=== PATIENT | female | born 2000 | race Caucasian/White ===

== ENCOUNTER 2022-05-12 12:32 | Inpatient (IN) | payer OTHER, SELFPAY ==
[2022-05-12 12:50] VITALS: BP 108/76; PULSE 106; RESP 18; TEMP 37.3; O2SAT 100; BMI 20.1
--- NOTE | 2022-05-12 13:43 | ED.PSYCH ---
HPI - Psych General Chief Complaint: Psychiatric Symptoms Stated Complaint: SECTION 12, SI Time Seen by Provider: 05/12/22 14:46 Source: patient Mode of arrival: ambulatory Limitations: no limitations History of Present Illness HPI Narrative: 21 yold female presents to the ED for anxixety and suicidal thoughts. Patient states she needs help and is more anxious. patietn denies any acutal sI plan. patient was sent by Her PCP to the Crisis [facility] and [facility] at the center evaluated patient and patient is a voluntary admission inpatient Related Data Home Medications Medication Instructions Recorded Confirmed norethindrone (contraceptive) 0.35 1 tab PO DAILY 05/12/22 05/12/22 mg tablet Allergies Allergy/AdvReac Type Severity Reaction Status Date / Time No Known Allergies Allergy Verified 05/12/22 13:38 Review of Systems Review of Systems: anxiety, SI with no plan Yes all other systems are reviewed and are negative PMFSH Social History Social History Household Members: Other Household Members Other:: Grandparents Housing: House Do you presently have visiting nurse or other home services: No Patient Tobacco Use Status: Never used Tobacco Tobacco use type: Cigarette Cigarette Packs Per Day: 0.5 Cigarettes Per Day: 10.0 Smoked in Last 30 Days: Yes e-Cigarette/Vaping Use: Never Used Patient Interested in Nicotine Replacement: Yes Patient Given Instructions on How to Stop Smoking: Yes Date Education Initiated: 05/13/22 Second Hand Smoke Exposure: No Substance Use Type: Marijuana Substance Use Frequency: Chronic Longstanding Last Used Substance: Weeks (ago) Currently Displaying Signs/Symptoms of Drug Intoxication Withdrawal: No Any prior treatment program specific to substance use: No Have you been hit, kicked, punched, or otherwise hurt by someone within the past year? If so, by whom?: No Do you feel safe in your current relationship?: No Current Relationship Is there a partner from a previous relationship who is making you feel unsafe now?: No Are you made to feel afraid or neglected: No Spiritual Healthcare Practices: None Adventist Healthcare Practices: None Cultural Healthcare Practices: none Advance Directives: No Advance Directives Information Provided: No Do you have thoughts of harming others: None Do you have a plan to hurt others: No Plan Recently lost weight without trying: Yes How much weight loss: 2-13 pounds Eating poorly because of decreased appetite: Yes Nutrition screen score: 4 Patient : No : No Poor oral hygiene: No Physical Exam Vital Signs: Vital Signs: Last Vital Signs Temp 97.9 F 05/13/22 03:40 Pulse 95 05/13/22 03:40 Resp 18 05/13/22 03:40 BP 103/66 05/13/22 03:40 Pulse Ox 97 05/13/22 03:40 O2 Del Method 05/13/22 03:40 BMI result Body Mass Index 20.1 Const: General: cooperative, healthy appearing, comfortable, no acute distress, well developed, alert, awake and Physically active Orientation/consciousness: oriented to person, oriented to place, oriented to time and patient oriented x3 HEENT: Head: Yes normal to inspection, Yes No palpable skull fracture present, Yes normocephalic, Yes atraumatic and No abrasion Eyes: General: appearance normal, both eyes and all related structures Neck: Neck: Yes normal visual inspection, Yes full ROM, Yes no lymphadenopathy, Yes no meningeal signs, Yes trachea midline, Yes supple, No anterior neck swelling and No tender Chest: Chest palpation & inspection: normal inspection of the chest and normal palpation of entire chest wall Resp: Effort & Inspection: normal respiratory effort and able to speak in complete sentences Auscultation: clear to auscultation bilaterally Cardio: Jugular venous distension: no JVD Heart sounds: S1 normal heart sound present and S2 normal heart sound present GI: Inspection: Yes normal to inspection and No abdominal wall ecchymosis Palpation (GI): Soft to palpation, not firm, nontender and no guarding : General: No CVA tenderness and Yes no CVA tenderness Back/Spine/Pelvis: Back: no CVA tenderness, No CVA tenderness and No back tenderness Skin: General skin exam: no rashes or lesions noted and elasticity normal Neuro: General: oriented to person, oriented to place, oriented to time, patient oriented x3, gait normal, tone normal, moves all extremities, Normal light touch and pain sensation, no meningeal signs and CN's II-XI intact bilaterally Extrem: General: Yes normal to inspection and Yes full ROM Psych: Other: anxious Appearance: grossly normal, well kempt and not disheveled Course Course Course Narrative: labs ordered Reevaluation(s) Reevaluation #1: Patient going to [facility] - Psych Lab Data Result diagrams: 05/12/22 14:03 05/12/22 14:03 Labs: Lab Results 05/12/22 05/12/22 05/12/22 Range/Units 14:03 14:03 14:22 WBC 6.9 (4.8-10.8) X10*3/uL RBC 4.86 (4.20-5.50) X10*6/uL Hgb 14.1 (12.0-16.0) g/dl Hct 41.4 (37.0-47.0) % MCV 85.2 (80.0-98.0) fL MCH 29.0 (27.0-33.0) pg MCHC 34.1 (31.0-35.0) g/dl RDW 11.9 (11.0-16.0) % Plt Count 183 (160-400) X10*3/uL MPV 9.7 (9.4-12.3) fL Immature Gran % (Auto) 0.4 (0.0-0.4) % Neut % (Auto) 57.8 (45-73) % Lymph % (Auto) 33.1 (20-40) % Hawkins % (Auto) 6.7 (2-11) % Eos % (Auto) 1.3 (0-4) % Baso % (Auto) 0.7 (0-2) % Lymph # (Auto) 2.3 (1.2-4.9) X10*3/uL Hawkins # (Auto) 0.5 (0.1-1.2) X10*3/uL Eos # (Auto) 0.1 (0.0-0.4) X10*3/uL Baso # (Auto) 0.1 (0.0-0.2) X10*3/uL Abs Immat Gran (auto) 0.03 (0.00-0.03) X10*3/uL Absolute Neuts (auto) 4.0 (2.0-8.3) x10*3/uL Absolute Nucleated RBC 0.000 (0.0-0.012) X10*3/uL Nucleated RBC % (auto) 0.0 (0.0-0.2) /100WBC Sodium 141 (135-145) mmol/L Potassium 4.1 (3.3-5.1) mmol/L Chloride 106 (96-108) mmol/L Carbon Dioxide 23 (22-29) mmol/L Anion Gap 16 (12-20) BUN 9 (9-16) mg/dL Creatinine 0.91 (0.5-1.4) mg/dL Estim Creat Clear Calc 75.7 Estimated GFR > 60 Random Glucose 97 (60-115) mg/dL Calcium 10.0 (8.4-10.2) mg/dL Total Bilirubin 0.6 (0.0-1.0) mg/dL AST 18 (5-31) U/L ALT 12 (0-31) U/L Alkaline Phosphatase 47 (39-117) U/L Total Protein 7.6 (6.5-8.0) g/dL Albumin 5.1 H (3.5-5.0) g/dL Urine Color Yellow Urine Appearance Clear Urine pH 7.0 (5.0-9.0) Ur Specific [place] <= 1.005 (1.005-1.025) Urine Protein Negative (Neg-Trace) mg/dL Urine Glucose (UA) Negative (Negative) mg/dL Urine Ketones Negative (Negative) mg/dL Urine Blood Negative (Negative) Urine Nitrite Negative (Negative) Ur Leukocyte Esterase Negative (Negative) Urine Test (NEGATIVE) Urine Opiates Screen (Not Detect) Urine Fentanyl Screen (Not Detect) Ur Barbiturates Screen (Not Detect) Ur Phencyclidine Scrn (Not Detect) Ur Amphetamines Screen (Not Detect) U Benzodiazepines Scrn (Not Detect) Urine Cocaine Screen (Not Detect) U Marijuana (THC) Screen (Not Detect) Ethyl Alcohol < 10 mg/dL COVID-19 (ANITA) (Negative) COVID-19 Clin Com 05/12/22 05/12/22 05/12/22 Range/Units 14:22 14:22 17:05 WBC (4.8-10.8) X10*3/uL RBC (4.20-5.50) X10*6/uL Hgb (12.0-16.0) g/dl Hct (37.0-47.0) % MCV (80.0-98.0) fL MCH (27.0-33.0) pg MCHC (31.0-35.0) g/dl RDW (11.0-16.0) % Plt Count (160-400) X10*3/uL MPV (9.4-12.3) fL Immature Gran % (Auto) (0.0-0.4) % Neut % (Auto) (45-73) % Lymph % (Auto) (20-40) % Hawkins % (Auto) (2-11) % Eos % (Auto) (0-4) % Baso % (Auto) (0-2) % Lymph # (Auto) (1.2-4.9) X10*3/uL Hawkins # (Auto) (0.1-1.2) X10*3/uL Eos # (Auto) (0.0-0.4) X10*3/uL Baso # (Auto) (0.0-0.2) X10*3/uL Abs Immat Gran (auto) (0.00-0.03) X10*3/uL Absolute Neuts (auto) (2.0-8.3) x10*3/uL Absolute Nucleated RBC (0.0-0.012) X10*3/uL Nucleated RBC % (auto) (0.0-0.2) /100WBC Sodium (135-145) mmol/L Potassium (3.3-5.1) mmol/L Chloride (96-108) mmol/L Carbon Dioxide (22-29) mmol/L Anion Gap (12-20) BUN (9-16) mg/dL Creatinine (0.5-1.4) mg/dL Estim Creat Clear Calc Estimated GFR Random Glucose (60-115) mg/dL Calcium (8.4-10.2) mg/dL Total Bilirubin (0.0-1.0) mg/dL AST (5-31) U/L ALT (0-31) U/L Alkaline Phosphatase (39-117) U/L Total Protein (6.5-8.0) g/dL Albumin (3.5-5.0) g/dL Urine Color Urine Appearance Urine pH (5.0-9.0) Ur Specific [place] (1.005-1.025) Urine Protein (Neg-Trace) mg/dL Urine Glucose (UA) (Negative) mg/dL Urine Ketones (Negative) mg/dL Urine Blood (Negative) Urine Nitrite (Negative) Ur Leukocyte Esterase (Negative) Urine Test NEGATIVE (NEGATIVE) Urine Opiates Screen Not Detected (Not Detect) Urine Fentanyl Screen Not Detected (Not Detect) Ur Barbiturates Screen Not Detected (Not Detect) Ur Phencyclidine Scrn Not Detected (Not Detect) Ur Amphetamines Screen Not Detected (Not Detect) U Benzodiazepines Scrn Not Detected (Not Detect) Urine Cocaine Screen Not Detected (Not Detect) U Marijuana (THC) Screen Not Detected (Not Detect) Ethyl Alcohol mg/dL COVID-19 (ANITA) Negative (Negative) COVID-19 Clin Com See Note Discharge Plan Discharge Clinical Impression: MDD (major depressive disorder) Patient Disposition: Admitted As Inpatient Interventions: Admission Worksheet (ED) Last Done: 05/13/22 03:36 Discharge Date/Time: 05/13/22 03:37
[2022-05-12 14:18] LABS: Basophils Absolute Auto 0.1 X10*3/uL (0.0-0.2); Basophils Percent Auto 0.7 % (0-2); Eosinophils Absolute Auto 0.1 X10*3/uL (0.0-0.4); Eosinophils Percent Auto 1.3 % (0-4); Hematocrit 41.4 % (37.0-47.0); Hemoglobin 14.1 g/dl (12.0-16.0); Imm Gran Abs Auto 0.03 X10*3/uL (0.00-0.03); Imm Gran Pct Auto 0.4 % (0.0-0.4); Lymphocytes Absolute Auto 2.3 X10*3/uL (1.2-4.9); Lymphocytes Percent Auto 33.1 % (20-40); MANUAL DIFF FLAG NO; Mean Corpuscular HGB Conc 34.1 g/dl (31.0-35.0); Mean Corpuscular Volume 85.2 fL (80.0-98.0); Mean Platelet Volume 9.7 fL (9.4-12.3); Monocytes Absolute Auto 0.5 X10*3/uL (0.1-1.2); Monocytes Percent Auto 6.7 % (2-11); Neutrophils Percent Auto 57.8 % (45-73); Platelet Count 183 X10*3/uL (160-400); Red Blood Count 4.86 X10*6/uL (4.20-5.50); Red Cell Distribution Width 11.9 % (11.0-16.0); White Blood Count 6.9 X10*3/uL (4.8-10.8)
[2022-05-12 14:29] LABS: UPreg QC Valid YES; Urine Pregnancy NEGATIVE (NEGATIVE)
[2022-05-12 14:33] LABS: Alanine Aminotransferase 12 U/L (0-31); Albumin Level 5.1 g/dL (3.5-5.0); Alkaline Phosphatase 47 U/L (39-117); Anion Gap 16 (12-20); Aspartate Amino Transferase 18 U/L (5-31); Bilirubin Total 0.6 mg/dL (0.0-1.0); Blood Urea Nitrogen 9 mg/dL (9-16); Carbon Dioxide 23 mmol/L (22-29); Chloride 106 mmol/L (96-108); Creatinine Clr Calc Pharmacy 75.7; Estimated Glomerular Filt Rate > 60; Ethanol < 10 mg/dL; Glucose Random 97 mg/dL (60-115); Potassium 4.1 mmol/L (3.3-5.1); Sodium 141 mmol/L (135-145); Total Protein 7.6 g/dL (6.5-8.0)
[2022-05-12 14:33] LABS: Appearance Urine Clear; Color Urine Yellow; Glucose Urine UA Negative (Negative); Leukocyte Esterase Urine Negative (Negative); Nitrite Urine Negative (Negative); Specific Gravity - Urine <= 1.005 (1.005-1.025); Urine Blood Negative (Negative); Urine Ketones Negative (Negative); Urine Protein Negative (Neg-Trace)
[2022-05-12 14:46] VITALS: BP 105/78; PULSE 102; RESP 18; O2SAT 98
[2022-05-12 15:20] LABS: Amphetamine Screen Urine Not Detected (Not Detect); Barbiturates, Urine Not Detected (Not Detect); Benzodiazepines Screen Urine Not Detected (Not Detect); Cannabinoid Screen Urine Not Detected (Not Detect); Cocaine Screen Urine Not Detected (Not Detect); Fentanyl, urine Not Detected (Not Detect); Opiate Screen Urine Not Detected (Not Detect); Phencyclidine Screen Urine Not Detected (Not Detect)
--- NOTE | 2022-05-12 17:34 | PC.NURSE ---
Pharmacy called for med rec. Awaiting pharmacy.
[2022-05-12 17:38] VITALS: BP 107/71; PULSE 92; RESP 14; TEMP 36.4; O2SAT 99
[2022-05-12 17:50] LABS: COVID-19 Test Negative (Negative); IDNOW Serial# 9DB6401D
[2022-05-12 19:11] VITALS: BP 103/76; PULSE 111; O2SAT 99
[2022-05-12] MEDS: LORazepam 1 MG TABLET 2 MG PO (20:59)
[2022-05-12] MEDS: Nicotine Polacrilex 2 MG GUM BUCCAL (20:59)
[2022-05-13 03:40] VITALS: BP 103/66; PULSE 95; RESP 18; TEMP 36.6; O2SAT 97
--- NOTE | 2022-05-13 06:21 | PC.ADMIT ---
Patient is a 21-year-old, cisgender, Gabonese speaking white female who presents to from [facility] ED for anxiety and suicidal thoughts. Patient is covid negative. Tox screen is negative. test is negative. Per [facility] crisis report; Patient was evaluated by [facility] secondary to her therapist referring her to crisis due to her not eating, not sleeping, drinking a lot of alcohol, and feeling her mind is out of control. Patient stated to [facility] she feels paranoid and sometimes thinks people are out to get her . Patient further stated she has disrupted sleep patterns due to anxiety, sleeping sometimes 2 hours, on average 5 hours. Appetite is low. She was endorsing current SI and stated it happens daily. She denied intent, and reported that she's thought of everything in terms of how she would kill herself. Patient stated I don't want to but doesn't trust herself due to feeling her mind is out of control. She stated she has flashbacks of finding her mother almost daily when she's stressed. Patient was cooperative during the admission process; denies SI/HI/AH/VH. Patient states I'm very tired, I would just like to lay down . She did complete the admission process and signed a Conditional Voluntary status.
[2022-05-13] MEDS: Nicotine Polacrilex 2 MG GUM BUCCAL (09:09)
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
[2022-05-13] MEDS: Nicotine Polacrilex 2 MG GUM 4 MG BUCCAL ×3 (13:16→20:46)
[2022-05-13] MEDS: FLUoxetine HCl 10 MG CAPSULE PO (13:17)
[2022-05-13 18:00] VITALS: BP 94/66; PULSE 91
[2022-05-13] MEDS: traZODone HCL 50 MG TABLET PO (22:33)
[2022-05-14 08:00] VITALS: BP 93/57; PULSE 80; TEMP 36.6; O2SAT 99
[2022-05-14] MEDS: FLUoxetine HCl 10 MG CAPSULE PO (08:17)
[2022-05-14] MEDS: Nicotine Polacrilex 2 MG GUM 4 MG BUCCAL ×3 (08:24→19:00)
[2022-05-14 09:09] LABS: Estimated Average Glucose 103 mg/dL; Hemoglobin A1c % 5.2 %
[2022-05-14 09:24] LABS: Cholesterol 137 mg/dL; HDL Cholesterol 42 mg/dL; LDL Cholesterol Calculated 88 mg/dl; Triglycerides 36 mg/dL
[2022-05-14 09:45] LABS: Free T4 (Free Thyroxine) 1.07 ng/dL (0.71-1.85); Thyroid Stimulating Hormone 0.56 uIU/mL (0.32-4.0)
[2022-05-14] MEDS: Nicotine 21 MG PATCH.TD24 TRANSDERMA (10:05)
--- NOTE | 2022-05-14 10:26 | P.PNPSI_ITS ---
Subjective Subjective Date of Service: 05/14/22 Reason For Visit: Anxiety, Si Interim History: Patient reports feeling a little better today. Patient had a panic attack last night but is not sure with the trigger was. She found she was able to come down by talking with her with staff. No side effects from the Prozac. She said she slept well and use trazodone but not sure was more helpful hydroxyzine. Patient feels grateful for the admission and feels that being on the unit is allowing her to process a lot of her anxious feelings. She said that because she is calm down and anxiety is a little less she is finding herself eating well and has finished all her meals. 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 Patient agrees to do some of her own work and try and identify these connections throughout the day. Also discussed medication and patient feels comfortable increasing the dose of Prozac. Denies any SI Mental Status Exam Mental Status Exam Narrative: Pt is alert and oriented; behavior is cooperative, more calm, friendly; dressed in casual attire and well-groomed; mood is described as a little better and affect congruent, a little more calm; eye contact appropriate; Speech is normal rate, volume and prosody and not pressured; no psychomotor agitation and retardation present; thought process is organized and goal directed; Thought content is on handling her worries; otherwise pertinent to relevant topics and without any delusional content, paranoid ideations or grandiosity; some Intermittent passive wish; denies any SI/HI. There is no evidence of perceptual disturbance. Patients insight and judgment are impaired but improving. Diagnostics Vital Signs (24Hr): Vital Signs - 24 hr 05/13/22 18:00 Pulse Rate 91 Blood Pressure 94/66 BMI result Body Mass Index 20.1 Labs Results: 05/12/22 14:03 05/12/22 14:03 Labs: Laboratory Results - last 48 hr 05/12/22 05/12/22 05/12/22 14:03 14:03 14:22 WBC 6.9 RBC 4.86 Hgb 14.1 Hct 41.4 MCV 85.2 MCH 29.0 MCHC 34.1 RDW 11.9 Plt Count 183 MPV 9.7 Immature Gran % (Auto) 0.4 Neut % (Auto) 57.8 Lymph % (Auto) 33.1 Davidson % (Auto) 6.7 Eos % (Auto) 1.3 Baso % (Auto) 0.7 Lymph # (Auto) 2.3 Davidson # (Auto) 0.5 Eos # (Auto) 0.1 Baso # (Auto) 0.1 Abs Immat Gran (auto) 0.03 Absolute Neuts (auto) 4.0 Absolute Nucleated RBC 0.000 Nucleated RBC % (auto) 0.0 Sodium 141 Potassium 4.1 Chloride 106 Carbon Dioxide 23 Anion Gap 16 BUN 9 Creatinine 0.91 Estim Creat Clear Calc 75.7 Estimated GFR > 60 Random Glucose 97 Estimat Average Glucose Hemoglobin A1c % Calcium 10.0 Magnesium Total Bilirubin 0.6 AST 18 ALT 12 Alkaline Phosphatase 47 Total Protein 7.6 Albumin 5.1 H Triglycerides Cholesterol LDL Cholesterol, Calc HDL Cholesterol TSH Free T4 Urine Color Yellow Urine Appearance Clear Urine pH 7.0 Ur Specific [place] <= 1.005 Urine Protein Negative Urine Glucose (UA) Negative Urine Ketones Negative Urine Blood Negative Urine Nitrite Negative Ur Leukocyte Esterase Negative Urine Test Urine Opiates Screen Urine Fentanyl Screen Ur Barbiturates Screen Ur Phencyclidine Scrn Ur Amphetamines Screen U Benzodiazepines Scrn Urine Cocaine Screen U Marijuana (THC) Screen Ethyl Alcohol < 10 COVID-19 ([facility]ITA) COVID-19 Clin Com 05/12/22 05/12/22 05/12/22 14:22 14:22 17:05 WBC RBC Hgb Hct MCV MCH MCHC RDW Plt Count MPV Immature Gran % (Auto) Neut % (Auto) Lymph % (Auto) [place] % (Auto) Eos % (Auto) Baso % (Auto) Lymph # (Auto) Davidson # (Auto) Eos # (Auto) Baso # (Auto) Abs Immat Gran (auto) Absolute Neuts (auto) Absolute Nucleated RBC Nucleated RBC % (auto) Sodium Potassium Chloride Carbon Dioxide Anion Gap BUN Creatinine Estim Creat Clear Calc Estimated GFR Random Glucose Estimat Average Glucose Hemoglobin A1c % Calcium Magnesium Total Bilirubin AST ALT Alkaline Phosphatase Total Protein Albumin Triglycerides Cholesterol LDL Cholesterol, Calc HDL Cholesterol TSH Free T4 Urine Color Urine Appearance Urine pH Ur Specific [place] Urine Protein Urine Glucose (UA) Urine Ketones Urine Blood Urine Nitrite Ur Leukocyte Esterase Urine Test NEGATIVE Urine Opiates Screen Not Detected Urine Fentanyl Screen Not Detected Ur Barbiturates Screen Not Detected Ur Phencyclidine Scrn Not Detected Ur Amphetamines Screen Not Detected U Benzodiazepines Scrn Not Detected Urine Cocaine Screen Not Detected U Marijuana (THC) Screen Not Detected Ethyl Alcohol COVID-19 (ANITA) Negative COVID-19 Clin Com See Note 05/14/22 05/14/22 08:14 08:14 WBC RBC Hgb Hct MCV MCH MCHC RDW Plt Count MPV Immature Gran % (Auto) Neut % (Auto) Lymph % (Auto) [place] % (Auto) Eos % (Auto) Baso % (Auto) Lymph # (Auto) [place] # (Auto) Eos # (Auto) Baso # (Auto) Abs Immat Gran (auto) Absolute Neuts (auto) Absolute Nucleated RBC Nucleated RBC % (auto) Sodium Potassium Chloride Carbon Dioxide Anion Gap BUN Creatinine Estim Creat Clear Calc Estimated GFR Random Glucose Estimat Average Glucose 103 Hemoglobin A1c % 5.2 Calcium Magnesium 2.0 Total Bilirubin AST ALT Alkaline Phosphatase Total Protein Albumin Triglycerides 36 Cholesterol 137 LDL Cholesterol, Calc 88 HDL Cholesterol 42 TSH 0.56 Free T4 1.07 Urine Color Urine Appearance Urine pH Ur Specific [place] Urine Protein Urine Glucose (UA) Urine Ketones Urine Blood Urine Nitrite Ur Leukocyte Esterase Urine Test Urine Opiates Screen Urine Fentanyl Screen Ur Barbiturates Screen Ur Phencyclidine Scrn Ur Amphetamines Screen U Benzodiazepines Scrn Urine Cocaine Screen U Marijuana (THC) Screen Ethyl Alcohol COVID-19 ([facility]ITA) COVID-19 Clin Com Medications Medications Current Medications Acetaminophen (Acetaminophen 325 Mg Tablet) 650 mg PO Q6H PRN PRN Reason: Headache/Pain Mild Scale (1-3) Al Hydroxide/Mg Hydroxide (Magnesium Hydrox/Alum Hydrox 30 Ml Oral.Susp) 30 ml PO Q6H PRN PRN Reason: Heartburn/Nausea Fluoxetine HCl (Fluoxetine Hcl 10 Mg Capsule) 10 mg PO DAILY [facility] Last Admin: 05/14/22 08:17 Dose: 10 mg Hydroxyzine HCl (Hydroxyzine Hcl 25 Mg Tablet) 25 mg PO Q6H PRN PRN Reason: Anxiety/insomnia Hydroxyzine HCl (Hydroxyzine Hcl 25 Mg Tablet) 25 mg PO BEDTIME PRN PRN Reason: insomnia Magnesium Hydroxide (Milk Of Magnesia 30 Ml Oral.Susp) 30 ml PO DAILY PRN PRN Reason: Constipation Nicotine (Nicotine 21 Mg Patch.Td24) 21 mg TRANSDERMA DAILY PRN PRN Reason: smoking cessation Last Admin: 05/14/22 10:05 Dose: 21 mg Nicotine Polacrilex (Nicotine Polacrilex 2 Mg Gum) 4 mg BUCCAL Q2H PRN PRN Reason: Nicotine Cravings Last Admin: 05/14/22 08:24 Dose: 4 mg Pt Own ( Norethindrone ( Contraceptive) 1 Tab ) 1 tab PO DAILY [facility] Last Admin: 05/13/22 20:43 Dose: 1 tab Trazodone HCl (Trazodone Hcl 50 Mg Tablet) 50 mg PO BEDTIME PRN PRN Reason: Insomnia Last Admin: 05/13/22 22:33 Dose: 50 mg Allergies Allergies Allergy/AdvReac Type Severity Reaction Status Date / Time No Known Allergies Allergy Verified 05/12/22 13:38 Assessment & Plan Assessment & Plan (1) RITIKA (generalized anxiety disorder): Status: Acute Code(s): F41.1 - Generalized anxiety disorder (2) MDD (major depressive disorder): Status: Acute Code(s): F32.9 - Major depressive disorder, single episode, unspecified (3) PTSD (post-traumatic stress disorder): Status: Acute Code(s): F43.10 - Post-traumatic stress disorder, unspecified Plan 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 -Anxiety symptoms fit more closely with RITIKA than OCD (which can remain a rule out); tx similar for both -depression seems more of consequence of life getting derailed by anxiety (interferes with boyfriend, work, daily tasks; pt is exhausted from it, can not stop it; excessive worries but no real specific obsessions) -symptoms either originated from or complicated by traumatic events of childhood -pt very anxious about medication side-effects but reasoned through it and willing to start Prozac again 05/14 Patient feeling a little better. Tolerating medication well. Slept well last night and says she is eating well which is new for her. She still anxious and still depressed but has more optimism that she will be able to work through this and overcome. Agrees to increase Prozac PLAN: CV q15 Increase to Prozac 20mg; continue hydroxyzine (pt takes at home for insomnia) get collateral I spent minutes with the patient and/or on the patient floor today, greater than?50% of which was spent counseling/coordinating care. Patient educated on: diagnosis, medication risk/benefits and therapeutic strategies Informed Consent: understands Reason for contiued inpatient stay Substantial Risk for: rapid decompensation
[2022-05-14 10:31] LABS: Folate 9.9 ng/mL (> or = 4.0); Vitamin B12 504 pg/mL (200-900)
[2022-05-14 18:00] VITALS: BP 105/72; PULSE 89; RESP 18; TEMP 37.4; O2SAT 97
[2022-05-15 07:00] VITALS: BMI 21.2
[2022-05-15] MEDS: FLUoxetine HCl 20 MG CAPSULE PO (08:08)
[2022-05-15 09:11] VITALS: BP 101/62; PULSE 86; RESP 16; TEMP 36.4; O2SAT 101
[2022-05-15] MEDS: Nicotine Polacrilex 2 MG GUM 4 MG BUCCAL ×3 (11:24→19:01)
--- NOTE | 2022-05-15 13:21 | HO.PSYCHPN ---
Subjective Subjective Date of Service: 05/15/22 Reason For Visit: Anxiety, Si Interim History: pt reports she is doing better; mood is better and anxiety is less; patient says she feels more able to pull herself away from constantly worrying about things. Patient says tolerating increased Prozac dose well. Patient shared more details about several of her past relationships with men and also with friends. Ap Processor and patient went through another CBT exercise and patient was able to challenge her go to automatic thought that she is on level. Patient also understands that she has been thinking this way for quite some time and will continue to struggle with this thought. However she says she really likes her outpatient therapist and will continue working on these issues. She has never been on medication before and she feels that she is in a better position to stabilize. Patient feels ready for discharge tomorrow. She denies any SI or HI or AVH. She continues to sleep in eat well. She remains with strong support in the community, including her grandparents and supple very close friends she has had since middle school. Mental Status Exam Mental Status Exam Narrative: Pt is alert and oriented; behavior is cooperative, more calm, friendly; dressed in casual attire and well-groomed; mood is described as good and affect congruent, calm, bright; eye contact appropriate; Speech is normal rate, volume and prosody and not pressured; no psychomotor agitation and retardation present; thought process is organized and goal directed; Thought content is on working on issues, controlling her worries; otherwise pertinent to relevant topics and without any delusional content, paranoid ideations or grandiosity; no passive wish, SI or HI; There is no evidence of perceptual disturbance. Patients insight and judgment are fair. . Diagnostics Vital Signs (24Hr): Vital Signs - 24 hr 05/14/22 18:00 05/15/22 09:11 Temperature 99.3 F 97.5 F Pulse Rate 89 86 Respiratory Rate 18 16 Blood Pressure 105/72 101/62 Pulse Oximetry 97 101 H Oxygen Delivery Method Room Air Room Air BMI result Body Mass Index 21.2 Labs Results: 05/12/22 14:03 05/12/22 14:03 Labs: Laboratory Results - last 48 hr 05/14/22 05/14/22 05/14/22 08:14 08:14 08:14 Estimat Average Glucose 103 Hemoglobin A1c % 5.2 Magnesium 2.0 Triglycerides 36 Cholesterol 137 LDL Cholesterol, Calc 88 HDL Cholesterol 42 Vitamin B12 504 Folate 9.9 TSH 0.56 Free T4 1.07 Medications Medications Current Medications Acetaminophen (Acetaminophen 325 Mg Tablet) 650 mg PO Q6H PRN PRN Reason: Headache/Pain Mild Scale (1-3) Al Hydroxide/Mg Hydroxide (Magnesium Hydrox/Alum Hydrox 30 Ml Oral.Susp) 30 ml PO Q6H PRN PRN Reason: Heartburn/Nausea Fluoxetine HCl (Fluoxetine Hcl 20 Mg Capsule) 20 mg PO DAILY [facility] Last Admin: 05/15/22 08:08 Dose: 20 mg Hydroxyzine HCl (Hydroxyzine Hcl 25 Mg Tablet) 25 mg PO Q6H PRN PRN Reason: Anxiety/insomnia Hydroxyzine HCl (Hydroxyzine Hcl 25 Mg Tablet) 25 mg PO BEDTIME PRN PRN Reason: insomnia Magnesium Hydroxide (Milk Of Magnesia 30 Ml Oral.Susp) 30 ml PO DAILY PRN PRN Reason: Constipation Nicotine (Nicotine 21 Mg Patch.Td24) 21 mg TRANSDERMA DAILY PRN PRN Reason: smoking cessation Last Admin: 05/14/22 10:05 Dose: 21 mg Nicotine Polacrilex (Nicotine Polacrilex 2 Mg Gum) 4 mg BUCCAL Q2H PRN PRN Reason: Nicotine Cravings Last Admin: 05/15/22 11:24 Dose: 4 mg Non-Formulary Medication (Norethindrone (Contraceptive)) 1 tab PO BEDTIME [facility] Last Admin: 05/14/22 22:05 Dose: Not Given Trazodone HCl (Trazodone Hcl 50 Mg Tablet) 50 mg PO BEDTIME PRN PRN Reason: Insomnia Last Admin: 05/13/22 22:33 Dose: 50 mg Allergies Allergies Allergy/AdvReac Type Severity Reaction Status Date / Time No Known Allergies Allergy Verified 05/12/22 13:38 Assessment & Plan Assessment & Plan (1) RITIKA (generalized anxiety disorder): Status: Acute Code(s): F41.1 - Generalized anxiety disorder (2) MDD (major depressive disorder): Status: Acute Code(s): F32.9 - Major depressive disorder, single episode, unspecified (3) PTSD (post-traumatic stress disorder): Status: Acute Code(s): F43.10 - Post-traumatic stress disorder, unspecified Plan 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 -Anxiety symptoms fit more closely with RITIKA than OCD (which can remain a rule out); tx similar for both -depression seems more of consequence of life getting derailed by anxiety (interferes with boyfriend, work, daily tasks; pt is exhausted from it, can not stop it; excessive worries but no real specific obsessions) -symptoms either originated from or complicated by traumatic events of childhood -pt very anxious about medication side-effects but reasoned through it and willing to start Prozac again 05/14 Patient feeling a little better. Tolerating medication well. Slept well last night and says she is eating well which is new for her. She still anxious and still depressed but has more optimism that she will be able to work through this and overcome. Agrees to increase Prozac 05/15 patient reports that she is doing better, anxiety under better control and depression mostly resolved. She is still anxious and struggles with worries however she feels that she has more control over how long she dwells on a particular worry and more able to pull herself back. Patient has good support in the community including her grandparents, her friends and therapist with whom she has a strong rapport. Patient feels ready for discharge and put in a 3 day notice. She is future oriented, looking to get back to work, see her dog and continue treatment as an outpatient. She denies any SI or HI or AVH. She is sleeping and eating well, attending groups and has remained in good behavioral and impulse control, appropriate with peers and staff. Patient is not in imminent risk for harm to self or others and her request for discharge honored. PLAN: 3 day q15 Increase to Prozac 20mg; continue hydroxyzine (pt takes at home for insomnia) get collateral I spent minutes with the patient and/or on the patient floor today, greater than?50% of which was spent counseling/coordinating care. Patient educated on: diagnosis, medication risk/benefits and therapeutic strategies Informed Consent: understands Reason for contiued inpatient stay Substantial Risk for: stable for discharge
--- NOTE | 2022-05-16 07:16 | PM.PSYDC ---
DS: Providers Provider Date of Service: 05/16/22 Date of admission: 05/13/22 03:12 Date of discharge: 05/16/22 Primary care physician: Gianna Krishnan CNP Attending physician on admission: Mekhi Ledesma Attending physician on discharge: Mekhi Ledesma DS: Diagnosis Discharge Diagnosis (1) RITIKA (generalized anxiety disorder): Status: Acute (2) MDD (major depressive disorder): Status: Acute (3) PTSD (post-traumatic stress disorder): Status: Acute DS: Medications Discharge Medications Home Medications: Home Medications Medication Instructions Recorded Confirmed norethindrone (contraceptive) 0.35 1 tab PO DAILY 05/12/22 05/12/22 mg tablet Previous Rx's Medication Instructions Recorded fluoxetine 20 mg capsule 20 mg PO DAILY 30 days #30 caps 05/15/22 hydroxyzine HCl 25 mg tablet 25 mg PO Q6H PRN Anxiety/insomnia 05/15/22 30 days #90 tabs nicotine (polacrilex) 2 mg gum 4 mg buccal Q2H PRN Nicotine 05/15/22 Cravings 30 days #100 ea Mental Status Exam Mental Status Exam Narrative: Pt is alert and oriented; behavior is cooperative, more calm, friendly; dressed in casual attire and well-groomed; mood is described as good and affect congruent, calm, bright; eye contact appropriate; Speech is normal rate, volume and prosody and not pressured; no psychomotor agitation and retardation present; thought process is organized and goal directed; Thought content is on working on issues, controlling her worries; otherwise pertinent to relevant topics and without any delusional content, paranoid ideations or grandiosity; no passive wish, SI or HI; There is no evidence of perceptual disturbance. Patients insight and judgment are fair. . Data Data Completed and Pending Completed studies during hospitalization [Text1]: 05/12/22 05/12/22 05/12/22 14:03 14:03 14:22 WBC 6.9 RBC 4.86 Hgb 14.1 Hct 41.4 MCV 85.2 MCH 29.0 MCHC 34.1 RDW 11.9 Plt Count 183 MPV 9.7 Immature Gran % (Auto) 0.4 Neut % (Auto) 57.8 Lymph % (Auto) 33.1 [place] % (Auto) 6.7 Eos % (Auto) 1.3 Baso % (Auto) 0.7 Lymph # (Auto) 2.3 [place] # (Auto) 0.5 Eos # (Auto) 0.1 Baso # (Auto) 0.1 Abs Immat Gran (auto) 0.03 Absolute Neuts (auto) 4.0 Absolute Nucleated RBC 0.000 Nucleated RBC % (auto) 0.0 Sodium 141 Potassium 4.1 Chloride 106 Carbon Dioxide 23 Anion Gap 16 BUN 9 Creatinine 0.91 Estim Creat Clear Calc 75.7 Estimated GFR > 60 Random Glucose 97 Estimat Average Glucose Hemoglobin A1c % Calcium 10.0 Magnesium Total Bilirubin 0.6 AST 18 ALT 12 Alkaline Phosphatase 47 Total Protein 7.6 Albumin 5.1 H Triglycerides Cholesterol LDL Cholesterol, Calc HDL Cholesterol Vitamin B12 Folate TSH Free T4 Urine Color Yellow Urine Appearance Clear Urine pH 7.0 Ur Specific [place] <= 1.005 Urine Protein Negative Urine Glucose (UA) Negative Urine Ketones Negative Urine Blood Negative Urine Nitrite Negative Ur Leukocyte Esterase Negative Urine Test Urine Opiates Screen Urine Fentanyl Screen Ur Barbiturates Screen Ur Phencyclidine Scrn Ur Amphetamines Screen U Benzodiazepines Scrn Urine Cocaine Screen U Marijuana (THC) Screen Ethyl Alcohol < 10 COVID-19 ([facility]) COVID-19 Clin Com 05/12/22 05/12/22 05/12/22 14:22 14:22 17:05 WBC RBC Hgb Hct MCV MCH MCHC RDW Plt Count MPV Immature Gran % (Auto) Neut % (Auto) Lymph % (Auto) [place] % (Auto) Eos % (Auto) Baso % (Auto) Lymph # (Auto) [place] # (Auto) Eos # (Auto) Baso # (Auto) Abs Immat Gran (auto) Absolute Neuts (auto) Absolute Nucleated RBC Nucleated RBC % (auto) Sodium Potassium Chloride Carbon Dioxide Anion Gap BUN Creatinine Estim Creat Clear Calc Estimated GFR Random Glucose Estimat Average Glucose Hemoglobin A1c % Calcium Magnesium Total Bilirubin AST ALT Alkaline Phosphatase Total Protein Albumin Triglycerides Cholesterol LDL Cholesterol, Calc HDL Cholesterol Vitamin B12 Folate TSH Free T4 Urine Color Urine Appearance Urine pH Ur Specific [place] Urine Protein Urine Glucose (UA) Urine Ketones Urine Blood Urine Nitrite Ur Leukocyte Esterase Urine Test NEGATIVE Urine Opiates Screen Not Detected Urine Fentanyl Screen Not Detected Ur Barbiturates Screen Not Detected Ur Phencyclidine Scrn Not Detected Ur Amphetamines Screen Not Detected U Benzodiazepines Scrn Not Detected Urine Cocaine Screen Not Detected U Marijuana (THC) Screen Not Detected Ethyl Alcohol COVID-19 ([facility]) Negative COVID-19 Clin Com See Note 05/14/22 05/14/22 05/14/22 08:14 08:14 08:14 WBC RBC Hgb Hct MCV MCH MCHC RDW Plt Count MPV Immature Gran % (Auto) Neut % (Auto) Lymph % (Auto) [place] % (Auto) Eos % (Auto) Baso % (Auto) Lymph # (Auto) [place] # (Auto) Eos # (Auto) Baso # (Auto) Abs Immat Gran (auto) Absolute Neuts (auto) Absolute Nucleated RBC Nucleated RBC % (auto) Sodium Potassium Chloride Carbon Dioxide Anion Gap BUN Creatinine Estim Creat Clear Calc Estimated GFR Random Glucose Estimat Average Glucose 103 Hemoglobin A1c % 5.2 Calcium Magnesium 2.0 Total Bilirubin AST ALT Alkaline Phosphatase Total Protein Albumin Triglycerides 36 Cholesterol 137 LDL Cholesterol, Calc 88 HDL Cholesterol 42 Vitamin B12 504 Folate 9.9 TSH 0.56 Free T4 1.07 Urine Color Urine Appearance Urine pH Ur Specific [place] Urine Protein Urine Glucose (UA) Urine Ketones Urine Blood Urine Nitrite Ur Leukocyte Esterase Urine Test Urine Opiates Screen Urine Fentanyl Screen Ur Barbiturates Screen Ur Phencyclidine Scrn Ur Amphetamines Screen U Benzodiazepines Scrn Urine Cocaine Screen U Marijuana (THC) Screen Ethyl Alcohol COVID-19 ([facility]) COVID-19 Clin Com DS: Summary Hospital Course Hospital Course: HPI: 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 -Anxiety symptoms fit more closely with RITIKA than OCD (which can remain a rule out); tx similar for both -depression seems more of consequence of life getting derailed by anxiety (interferes with boyfriend, work, daily tasks; pt is exhausted from it, can not stop it; excessive worries but no real specific obsessions) -symptoms either originated from or complicated by traumatic events of childhood On admission, patient was cooperative and friendly but anxious and intermittently tearful, played with worries and self-deprecating thoughts. She was very anxious about medication side-effects but reasoned through it and willing to start Prozac again. Soon patient started feeling better. She was? Tolerating medication well.? Patient reported she Slept well last night and says she is eating well which is new for her.? She still anxious and still depressed but has more optimism that she will be able to work through this and overcome.? Agrees to increase Prozac to 20 mg. Patient continued to improve. Patient reports that she is doing better, anxiety under better control and depression mostly resolved.? She is still anxious and struggles with worries however she feels that she has more control over how long she dwells on a particular worry and more able to pull herself back.? Patient has good support in the community including her grandparents, her friends and therapist with whom she has a strong rapport.? Patient feels ready for discharge and put in a 3 day notice.? She is future oriented, looking to get back to work, see her dog and continue treatment as an outpatient.? She denies any SI or HI or AVH.? She is sleeping and eating well, attending groups and has remained in good behavioral and impulse control, appropriate with peers and staff.? Patient is not in imminent risk for harm to self or others and her request for discharge honored. Time spent discussing smoking cessation with patient: 3 to 10 minutes Status at Discharge Functional status at discharge: independent ambulation Overall status at discharge: patient is progressing back to baseline Time Spent with Patient Time attestation: Total time spent providing and/or coordinating discharge services: Time spent: Less than 30 minutes Discharge Plan Discharge Anticipated Discharge Date/Time: 05/16/22 14:45 Patient Disposition: Home, Self-Care Discharge Diagnosis: RITIKA; MDD, recurrent, moderate in full remission Referrals: Therapy: Trina Camarena [Other] - 05/21/22 6:00 pm (This appointment is in-person) Psychiatric Med Management: Anna Rodriguez APRN [Other] - 06/05/22 9:00 am (This appointment is in-person) Gianna Krishnan CNP [Primary Care Provider] - 05/26/22 1:10 pm Discharge Medications: New nicotine (polacrilex) 2 mg Gum 4 mg buccal Q2H PRN (Reason: Nicotine Cravings) 30 Days Qty: 100 0RF fluoxetine 20 mg Capsule 20 mg PO DAILY 30 Days Qty: 30 0RF hydroxyzine HCl 25 mg Tablet 25 mg PO Q6H PRN (Reason: Anxiety/insomnia) 30 Days Qty: 90 0RF Continued norethindrone (contraceptive) 0.35 mg tablet 1 tab PO DAILY Discharge Orders: Discharge Order (Routine); Ordered 05/16/22 Ordered By: Mekhi Ledesma Diet: Regular diet Activity on Discharge: As tolerated Stand Alone Forms: Patient Portal Discharge page, Community Support Care Plan Goals: Maintain mood and safe behaviors Take medications as prescribed Continue to pursue sobriety Practice coping skills Continue with outpatient providers and reach out to them as needed Health Concerns: Mood stability and behaviors Plan of Treatment: Follow up with your psychiatric provider and other outpatient providers regarding above concerns Take medications as prescribed Assessment: Risk assessment at time of discharge:? Patient was interviewed prior to discharge and found to be fully oriented and without any SI or HI. Patient has insight and demonstrates good judgment in terms of wanting to pursue treatment. Patient is not in imminent risk of harm to self or others and has a safety plan that includes presenting to the closest ER or calling 911 if feeling unsafe.? Patient has been observed closely by nursing and unit staff throughout admission; patient has not engaged in any behaviors that suggest dangerousness to self or others and has demonstrated appropriate behaviors and impulse control Discharge Date/Time: 05/16/22 14:24
[2022-05-16] MEDS: FLUoxetine HCl 20 MG CAPSULE PO (08:59)
[2022-05-16 09:01] VITALS: BP 106/66; PULSE 82; RESP 16; TEMP 36.5; O2SAT 100
--- NOTE | 2022-05-16 13:27 | P.PNPSI_ITS ---
Subjective Subjective Date of Service: 05/16/22 Reason For Visit: Anxiety, Si Subjective Notes: 3 Day Interim History: Pt reports feeling prepared for discharge. Denies SI, HI. No symptoms of psychosis, lenora. Review of plan, medications. Pt verbalized understanding. Discussed with pt that she may call/return as needed. She verbalized understanding of this as well. She offered her thanks and gratitude for her team and their work with her during her admission. Side effects from medications: No Attending Groups: No Review of Systems Acute medical concerns: No Medical Review of Systems: unchanged Mental Status Exam Mental Status Exam Patient Appearance: Appropriate Patient Orientation: Person, Place, Time and Situation Level of Consciousness: Alert Patient Behavior: Talkative, Cooperative and Good Eye Contact Mood Description: Constricted Affect Description: Constricted Patient Cognition Impaired: No Ability to Follow Directions: Good Speech Pattern: Spontaneous Speech Memory Description: Intact Hallucinations: None Delusions: Not Present Thought Process: Intact Thought Content: positive for Intact Judgement: Good Diagnostics Vital Signs (24Hr): Vital Signs - 24 hr 05/16/22 09:01 Temperature 97.7 F Pulse Rate 82 Respiratory Rate 16 Blood Pressure 106/66 Pulse Oximetry 100 Oxygen Delivery Method Room Air BMI result Body Mass Index 21.2 Labs Results: 05/12/22 14:03 05/12/22 14:03 Medications Medications Current Medications Acetaminophen (Acetaminophen 325 Mg Tablet) 650 mg PO Q6H PRN PRN Reason: Headache/Pain Mild Scale (1-3) Al Hydroxide/Mg Hydroxide (Magnesium Hydrox/Alum Hydrox 30 Ml Oral.Susp) 30 ml PO Q6H PRN PRN Reason: Heartburn/Nausea Fluoxetine HCl (Fluoxetine Hcl 20 Mg Capsule) 20 mg PO DAILY [facility] Last Admin: 05/16/22 08:59 Dose: 20 mg Hydroxyzine HCl (Hydroxyzine Hcl 25 Mg Tablet) 25 mg PO Q6H PRN PRN Reason: Anxiety/insomnia Hydroxyzine HCl (Hydroxyzine Hcl 25 Mg Tablet) 25 mg PO BEDTIME PRN PRN Reason: insomnia Magnesium Hydroxide (Milk Of Magnesia 30 Ml Oral.Susp) 30 ml PO DAILY PRN PRN Reason: Constipation Nicotine (Nicotine 21 Mg Patch.Td24) 21 mg TRANSDERMA DAILY PRN PRN Reason: smoking cessation Last Admin: 05/14/22 10:05 Dose: 21 mg Nicotine Polacrilex (Nicotine Polacrilex 2 Mg Gum) 4 mg BUCCAL Q2H PRN PRN Reason: Nicotine Cravings Last Admin: 05/15/22 19:01 Dose: 4 mg Non-Formulary Medication (Norethindrone (Contraceptive)) 1 tab PO BEDTIME DENISHA Last Admin: 05/15/22 20:34 Dose: 1 tab Trazodone HCl (Trazodone Hcl 50 Mg Tablet) 50 mg PO BEDTIME PRN PRN Reason: Insomnia Last Admin: 05/13/22 22:33 Dose: 50 mg Allergies Allergies Allergy/AdvReac Type Severity Reaction Status Date / Time No Known Allergies Allergy Verified 05/12/22 13:38 Assessment & Plan Assessment & Plan (1) RITIKA (generalized anxiety disorder): Status: Acute Code(s): F41.1 - Generalized anxiety disorder (2) MDD (major depressive disorder): Status: Acute Code(s): F32.9 - Major depressive disorder, single episode, unspecified (3) PTSD (post-traumatic stress disorder): Status: Acute Code(s): F43.10 - Post-traumatic stress disorder, unspecified Plan 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 -Anxiety symptoms fit more closely with RITIKA than OCD (which can remain a rule out); tx similar for both -depression seems more of consequence of life getting derailed by anxiety (interferes with boyfriend, work, daily tasks; pt is exhausted from it, can not stop it; excessive worries but no real specific obsessions) -symptoms either originated from or complicated by traumatic events of childhood -pt very anxious about medication side-effects but reasoned through it and willing to start Prozac again 05/14 Patient feeling a little better. Tolerating medication well. Slept well last night and says she is eating well which is new for her. She still anxious and still depressed but has more optimism that she will be able to work through this and overcome. Agrees to increase Prozac 05/15 patient reports that she is doing better, anxiety under better control and depression mostly resolved. She is still anxious and struggles with worries however she feels that she has more control over how long she dwells on a particular worry and more able to pull herself back. Patient has good support in the community including her grandparents, her friends and therapist with whom she has a strong rapport. Patient feels ready for discharge and put in a 3 day notice. She is future oriented, looking to get back to work, see her dog and continue treatment as an outpatient. She denies any SI or HI or AVH. She is sl eeping and eating well, attending groups and has remained in good behavioral and impulse control, appropriate with peers and staff. Patient is not in imminent risk for harm to self or others and her request for discharge honored. 05/16/22: Discharge today. Medications and plan of care reviewed with pt and she verbalized understanding. PLAN: 3 day q15 Increase to Prozac 20mg; continue hydroxyzine (pt takes at home for insomnia) get collateral I spent minutes with the patient and/or on the patient floor today, greater than?50% of which was spent counseling/coordinating care. Patient educated on: medication risk/benefits and therapeutic strategies Informed Consent: understands Reason for contiued inpatient stay Substantial Risk for: stable for discharge
== END 2022-05-16 14:24 | disposition home or self-care (01) | DRG 881 ==
LOC: HO.ED 21:28 → HO.PM5 05-13 03:27
PROVIDERS: Clinical Nurse Specialist Psychiatric/Mental Health, Adult; Physician Assistant; Admitting Provider Psychiatry & Neurology Psychiatry; Emergency Provider Emergency Medicine; PCP Nurse Practitioner Family; Visit Provider Psychiatry & Neurology Psychiatry
DX: F32.9 Major depressive disorder, single episode, unspecified (principal); R45.851 Suicidal ideations; F41.1 Generalized anxiety disorder; F43.10 Post-traumatic stress disorder, unspecified; Z20.822 Contact with and (suspected) exposure to COVID-19; Z79.3 Long term (current) use of hormonal contraceptives; Z79.899 Other long term (current) drug therapy
CPT/HCPCS: 36415; 80053; 80061; 80307; 81003; 81025; 82077; 82607; 82746; 83036; 83735; 84439; 84443; 85025; 87635; 99285